=== PATIENT | female | born 2000 | race African-American/Black ===

== ENCOUNTER 2020-03-20 13:51 | Emergency (ER) | payer SELFPAY ==
[2020-03-20 14:09] VITALS: BP 121/95; PULSE 98; RESP 16; TEMP 36.3; O2SAT 100
[2020-03-20 14:39] LABS: Basophils Percent Auto 0.4 % (0.2-1.2); Eosinophils Absolute Auto 0.4 K/mm3 (0-0.3); Eosinophils Percent Auto 6.1 % (0-4.4); Hematocrit 38.6 % (37.0-47.0); Hemoglobin 12.2 g/dL (12.0-15.0); Immature Granulocyte Absolute 0.01 K/mm3 (0.00-0.031); Immature Granulocyte Percent A 0.1 % (0-0.5); Lymphocytes Absolute Auto 2.35 K/mm3 (0.9-3.2); Lymphocytes Percent Auto 34.8 % (18.3-44.2); Mean Corpuscular HGB Conc 31.6 g/dl (32-36); Mean Corpuscular Hemoglobin 25.5 pg (26-34); Mean Corpuscular Volume 80.8 fl (80-100); Mean Platelet Volume 9.8 fl (7.4-10.4); Monocytes Absolute Auto 0.7 K/mm3 (0.1-0.6); Monocytes Percent Auto 9.8 % (2.6-8.5); Neutrophils Absolute Auto 3.3 K/mm3 (1.3-6.7); Neutrophils Percent Auto 48.8 % (45.5-73.1); Platelet Count Result 356 k/mm3 (150-375); Red Blood Count 4.78 M/mm3 (4.2-5.4); Red Cell Distribution Width 13.9 % (11.5-14.5); White Blood Count 6.8 K/mm3 (4.5-10.0)
[2020-03-20 15:01] LABS: Alanine Aminotransferase 10 U/L (4-35); Albumin Level 3.9 g/dL (3.5-5.1); Alkaline Phosphatase 74 U/L (38-126); Anion Gap 6 mmol/L (8-16); Aspartate Amino Transferase 19 U/L (14-36); Bilirubin,Total 0.3 mg/dL (0.2-1.3); Blood Urea Nitrogen 10 mg/dL (7-17); Calcium 8.9 mg/dL (8.4-10.2); Carbon Dioxide 30 mmol/L (22-30); Chloride 103 mmol/L (98-107); Estimated CRCL calculation 138 ml/min; Estimated Glomerular Filt Rate > 60; Glucose 91 mg/dL (65-105); Potassium 3.7 mmol/L (3.4-5.0); Sodium 139 mmol/L (137-145)
[2020-03-20 15:39] LABS: HIV 1/2 Ab P24 Ag Result Negative (Negative)
--- NOTE | 2020-03-20 15:52 | ED.GENADULT ---
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 She states her daughter made her come to the ER to be evaluated. The patient is being tested for HIV but is known to be positive for hepatitis C and negative for hepatitis B. Patient states that she was vaccinated against hepatitis B. Patient states that her eyes were irrigated on the scene. She denies having a history of hepatitis or HIV herself. Patient denies any chronic medical conditions or daily medications. <MARCOS De La Vega Last Filed: 03/20/20 15:54> Related Data Home medications: Home Medications Medication Instructions Recorded Confirmed No Home Medications 03/20/20 03/20/20 <MARCOS De La Vega Last Filed: 03/20/20 15:54> Allergies/adverse reactions: Allergies Allergy/AdvReac Type Severity Reaction Status Date / Time No Known Allergies Allergy Verified 03/20/20 14:18 <MARCOS De La Vega Last Filed: 03/20/20 15:54> Review of Systems Review of Systems: Narrative: CONSTITUTIONAL: Denies fever, chills, or sweats. EYES: Reports blurred bladder to eye denies visual changes, redness, or discharge. ENT: Denies rhinorrhea, congestion, sore throat, or otalgia. CARDIOVASCULAR: Denies chest pain, palpitations, or edema. RESPIRATORY: Denies cough or dyspnea. GASTROINTESTINAL: Denies abdominal pain, nausea, vomiting, or diarrhea. GENITOURINARY: Denies dysuria or hematuria. SKIN: Denies rash or itching. MUSCULOSKELETAL: Denies back pain, joint pain, or myalgia. NEUROLOGIC: Denies headache, numbness, dizziness, or weakness. PSYCHIATRIC: Denies anxiety or depression. <Mary Queen PA-C - Last Filed: 03/20/20 15:54> [facility] Social History Social History: Social History Gender identity (if verbalized by the patient): Female <MARCOS De La Vega Last Filed: 03/20/20 15:54> Exam Narrative: Exam Narrative: GENERAL: Well-appearing, well-nourished, and in no acute distress. HEAD: Normocephalic, atraumatic. EYES: PERRLA and EOMI. CHEST: Clear to auscultation. No respiratory distress. No wheezes rales or rhonchi HEART: Regular rate and rhythm. No murmur heard. Normal peripheral pulses. EXTREMITIES: Normal range of motion. No edema. SKIN: Warm, dry, no rash. NEURO: No focal deficits. Alert and oriented x3. PSYCH: Normal mood and affect. <MARCOS De La Vega Last Filed: 03/20/20 15:54> Course Vital Signs Vital signs: Vital Signs Temperature 97.4 F L 03/20/20 14:09 Pulse Rate 98 03/20/20 14:09 Respiratory Rate 16 03/20/20 14:09 Blood Pressure 121/95 H 03/20/20 14:09 Pulse Oximetry 100 03/20/20 14:09 Temperature 97.4 F L 03/20/20 14:09 Pulse Rate 98 03/20/20 14:09 Respiratory Rate 16 03/20/20 14:09 Blood Pressure 121/95 H 03/20/20 14:09 Pulse Oximetry 100 03/20/20 14:09 <MARCOS De La Vega Last Filed: 03/20/20 15:54> Vital Signs Temperature 97.4 F L 03/20/20 14:09 Pulse Rate 98 03/20/20 14:09 Respiratory Rate 16 03/20/20 14:09 Blood Pressure 121/95 H 03/20/20 14:09 Pulse Oximetry 100 03/20/20 14:09 Temperature 97.4 F L 03/20/20 14:09 Pulse Rate 98 03/20/20 14:09 Respiratory Rate 16 03/20/20 14:09 Blood Pressure 121/95 H 03/20/20 14:09 Pulse Oximet
[2020-03-20 16:19] LABS: Hepatitis B Surface Antigen Negative (Negative)
[2020-03-20 16:25] LABS: HAV RESULT Negative (Negative); Hepatitis B Core IgM Result Negative (Negative)
[2020-03-20 16:36] LABS: Hepatitis C Virus Antibody Negative (Negative)
== END 2020-03-20 15:49 | disposition home or self-care (01) ==
LOC: ANHED 14:34
PROVIDERS: Physician Assistant; Emergency Provider General Practice
DX: Z77.21 Contact with and (suspected) exposure to potentially hazardous body fluids (principal)
CPT/HCPCS: 36415; 80053; 80074; 85025; 86703; 99283; G0432

== ENCOUNTER 2020-04-09 12:32 | Emergency (ER) | payer OTHER, SELFPAY ==
--- NOTE | ~2020-04-09 | XR_ITS ---
EXAMINATION: XR chest 1V portable DATE: 04/09/2020 14:45 INDICATION: Cough. TECHNIQUE: A single frontal view of the chest was obtained. COMPARISON: None. FINDINGS: The chest demonstrates clear lungs without pneumonia, pleural effusion, or pneumothorax. Th e heart size is normal. IMPRESSION: 1. No acute cardiopulmonary disease. Reviewed, dictated and finalized at location [facility] [employer] [facility]
[2020-04-09 12:38] VITALS: BP 139/96; PULSE 95; RESP 18; TEMP 36.2; O2SAT 100
--- NOTE | 2020-04-09 14:13 | ED.GENADULT ---
HPI - General Adult General Chief complaint: Headache Stated complaint: headache/ passing out Time Seen by Provider: 04/09/20 13:46 Source: patient Mode of arrival: ambulatory Limitations: no limitations History of Present Illness HPI narrative: Patient is a 19-year-old female who presents to emergency department for evaluation of syncope today patient notes she did not completely pass out but was near syncopal while at work patient on arrival notes left-sided headache notes over the last week she has had congestion rhinorrhea chills fatigue cough that is nonproductive and notes that she can no longer smell or taste during this period. Patient does not have a primary care doctor has not been seen for this. Patient denies chest pain shortness of breath vomiting diarrhea vaginal bleeding. On arrival patient does not appear uncomfortable or in any distress. Patient is not taken anything for her symptoms Related Data Allergies Allergy/AdvReac Type Severity Reaction Status Date / Time No Known Allergies Allergy Verified 03/20/20 14:18 Review of Systems Review of Systems: All systems reviewed & are unremarkable except as noted in HPI and below PMFSH Social History Social History (Updated 04/09/20 @ 14:15 by Rell Naranjo PA-C) Smoking status: Never smoker Gender identity (if verbalized by the patient): Female Exam Narrative: Exam Narrative: GENERAL: Well-appearing, well-nourished, and in no acute distress. HEAD: Normocephalic, atraumatic. EYES: PERRLA and EOMI. ENT: Nares clear, no rhinorrhea or epistaxis. Mucous membranes moist. CHEST: Clear to auscultation. No respiratory distress. No wheezes rales or rhonchi HEART: Regular rate and rhythm. No murmur heard. Normal peripheral pulses. ABDOMEN: Soft, nontender, nondistended EXTREMITIES: Normal range of motion. No edema. SKIN: Warm, dry, no rash. NEURO: No focal deficits. Alert and oriented x3. Cranial nerves II through XII grossly intact. Normal speech PSYCH: Normal mood and affect. Course Course Emergency Course: Patient evaluated in the emergency department no distress will be discharged home with follow-up with primary care for further testing and evaluation will be tested for COVID-19 patient is afebrile nontoxic-appearing no distress felt appropriate for outpatient reevaluation is noted patient medicated in the emergency department Vital Signs Vital signs: Vital Signs Temperature 97.2 F L 01/25/21 12:38 Pulse Rate 95 04/09/20 12:38 Respiratory Rate 18 04/09/20 12:38 Blood Pressure 139/96 H 04/09/20 12:38 Pulse Oximetry 100 04/09/20 12:38 Temperature 97.2 F L 04/09/20 12:38 Pulse Rate 96 04/09/20 14:24 Respiratory Rate 18 04/09/20 12:38 Blood Pressure 137/81 04/09/20 14:24 Pulse Oximetry 100 04/09/20 12:38 Medical Decision Making MDM Narrative Medical decision making narrative: Patient with upper respiratory symptoms will be discharged home with follow-up with primary care patient was made aware that primary care is the only 1 that can obtain her COVID-19 results. Patient provided with reasons to return patient is afebrile nontoxic-appearing no distress. No pneumonia seen on exam Vital Signs Vital Signs: Vital Signs Temperature 97.2 F L 04/09/20 12:38 Pulse Rate 95 04/09/20 12:38 Respiratory Rate 18 04/09/20 12:38 Blood Pressure 139/96 H 04/09/20 12:38 Pulse Oximetry 100 04/09/20 12:38 Temperature 97.2 F L 04/09/20 12:38 Pulse Rate 96 04/09/20 14:24 Respiratory Rate 18 04/09/20 12:38 Blood Pressure 137/81 04/09/20 14:24 Pulse Oximetry 100 04/09/20 12:38 Lab Data Result diagrams: 04/09/20 14:19 04/09/20 14:20 Labs: Lab Results 04/09/20 04/09/20 04/09/20 Range/Units 14:19 14:20 14:20 WBC 3.5 L (4.5-10.0) K/mm3 RBC 5.00 (4.2-5.4) M/mm3 Hgb 13.0 (12.0-15.0) g/dL Hct 40.5 (37.0-47.0) % MCV 81.0 (80-100) fl MCH 26.
[2020-04-09 14:22] VITALS: BP 139/81; PULSE 102
[2020-04-09 14:24] VITALS: BP 137/81; PULSE 96
[2020-04-09 14:46] LABS: Basophils Percent Auto 0.3 % (0.2-1.2); Eosinophils Absolute Auto 0.2 K/mm3 (0-0.3); Eosinophils Percent Auto 4.3 % (0-4.4); Hematocrit 40.5 % (37.0-47.0); Lymphocytes Absolute Auto 1.55 K/mm3 (0.9-3.2); Lymphocytes Percent Auto 44.7 % (18.3-44.2); Mean Corpuscular HGB Conc 32.1 g/dl (32-36); Mean Platelet Volume 10.3 fl (7.4-10.4); Monocytes Absolute Auto 0.6 K/mm3 (0.1-0.6); Monocytes Percent Auto 15.9 % (2.6-8.5); Neutrophils Absolute Auto 1.2 K/mm3 (1.3-6.7); Neutrophils Percent Auto 34.8 % (45.5-73.1); Platelet Count Result 287 k/mm3 (150-375); Red Cell Distribution Width 13.9 % (11.5-14.5); White Blood Count 3.5 K/mm3 (4.5-10.0)
[2020-04-09 14:52] LABS: Add Urine Microscopic? YES; Appearance Urine Clear (Clear); Bilirubin Urine Negative (Negative); Blood Urine 2+ (Negative); Color Urine Yellow (Yellow); Glucose Urine UA Negative (Negative); Ketones Urine Negative (Negative); Leukocyte Esterase Ur Negative LEU/UL (Negative); Mucus Urine Heavy /lpf; Nitrate Urine Negative (Negative); Protein Urine 2+ mg/dL (Negative); RBC Urine 51-75 /hpf (0-2); Squamous Epithelial Cell Urine Many /hpf (Few); WBC Urine 0-3 /hpf
[2020-04-09] MEDS: SODIUM CHLORIDE 0.9% IV 1,000 ML 999 ML IV CONT (14:52)
[2020-04-09 14:53] LABS: Specific Grav Ur 1.036 (1.001-1.035)
[2020-04-09 14:58] LABS: Alanine Aminotransferase 11 U/L (4-35); Albumin Level 4.1 g/dL (3.5-5.1); Alkaline Phosphatase 66 U/L (38-126); Anion Gap 7 mmol/L (8-16); Aspartate Amino Transferase 21 U/L (14-36); Bilirubin,Total 0.3 mg/dL (0.2-1.3); Blood Urea Nitrogen 9 mg/dL (7-17); Calcium 8.7 mg/dL (8.4-10.2); Carbon Dioxide 33 mmol/L (22-30); Chloride 100 mmol/L (98-107); Estimated CRCL calculation 147 ml/min; Estimated Glomerular Filt Rate > 60; Glucose 78 mg/dL (65-105); Potassium 3.8 mmol/L (3.4-5.0); Sodium 140 mmol/L (137-145)
[2020-04-09 15:03] LABS: Amphetamine Screen Urine Negative (Negative); Barbiturate Screen Urine Negative (Negative); Benzodiazepines Screen Urine Negative (Negative); Cannabinoid Screen Urine Negative (Negative); Cocaine Screen Urine Negative (Negative); Methadone Screen Urine Negative (Negative); Opiate Screen Urine Negative (Negative); Phencyclidine Screen Urine Negative (Negative)
[2020-04-09 16:11] VITALS: BP 137/86; PULSE 99; RESP 16; O2SAT 99
[2020-04-09 22:05] LABS: SARS-CoV-2 RNA PCR Positive
== END 2020-04-09 16:11 | disposition home or self-care (01) ==
PROVIDERS: Emergency Medicine Emergency Medical Services; Emergency Provider Emergency Medicine; Referring Provider Family Medicine
DX: U07.1 COVID-19 (principal); J06.9 Acute upper respiratory infection, unspecified; R55 Syncope and collapse
CPT/HCPCS: 36415; 71045; 80053; 80307; 81001; 81025; 85025; 96361; 96365; 99284; C9803; J0131; J7030; U0003; U0005

== ENCOUNTER 2020-04-19 16:11 | Emergency (ER) | payer OTHER, SELFPAY ==
[2020-04-19 16:37] VITALS: BP 139/97; PULSE 94; RESP 17; TEMP 36.2; O2SAT 100
[2020-04-19] MEDS: PROCHLORPERAZINE EDISYLATE 10 MG/2 ML VIAL 5 MG IV PUSH (19:46)
[2020-04-19] MEDS: LACTATED RINGERS 1,000 ML 999 ML IV CONT (19:46)
[2020-04-19] MEDS: diphenhydrAMINE HCl INJ 50 MG/ML VIAL 25 MG IV PUSH (19:46)
--- NOTE | 2020-04-19 20:00 | ED.HA ---
HPI - Headache General Chief Complaint: Headache Stated Complaint: COVID, Headache Time Seen by Provider: 04/19/20 19:01 Source: patient Mode of arrival: ambulatory Limitations: no limitations History of Present Illness HPI Narrative: [facility] 19[facility]. Patient was recently diagnosed with Covid. She states that her headache has been persistent. She has been taking medications at home with little to no relief. Patient states that this has been very bothersome. She denies any other symptoms such as chest pain, shortness of breath or cough. Related Data Allergies Allergy/AdvReac Type Severity Reaction Status Date / Time No Known Allergies Allergy Verified 03/20/20 14:18 Review of Systems Review of Systems: Narrative: CONSTITUTIONAL: Denies fever, chills, or sweats. EYES: Denies visual changes, redness, or discharge. ENT: Denies rhinorrhea, congestion, sore throat, or otalgia. CARDIOVASCULAR: Denies chest pain, palpitations, or edema. RESPIRATORY: Denies cough or dyspnea. GASTROINTESTINAL: Denies abdominal pain, nausea, vomiting, or diarrhea. GENITOURINARY: Denies dysuria or hematuria. SKIN: Denies rash or itching. MUSCULOSKELETAL: Denies back pain, joint pain, or myalgia. NEUROLOGIC: Denies numbness, dizziness, or weakness. Endorses headache PSYCHIATRIC: Denies anxiety or depression. [facility] Social History Social History Smoking status: Never smoker Gender identity (if verbalized by the patient): Female Exam Narrative: Exam Narrative: GENERAL: Well-appearing, well-nourished, and in no acute distress. HEAD: Normocephalic, atraumatic. EYES: PERRLA and EOMI. ENT: Nares clear, no rhinorrhea or epistaxis. Mucous membranes moist. NECK: Supple. No adenopathy or masses. No carotid bruits or JVD CHEST: Clear to auscultation. No respiratory distress. No wheezes rales or rhonchi HEART: Regular rate and rhythm. No murmur heard. Normal peripheral pulses. ABDOMEN: Soft, nontender, nondistended, normal active bowel sounds. EXTREMITIES: Normal range of motion. No edema. SKIN: Warm, dry, no rash. NEURO: No focal deficits. Alert and oriented x3. PSYCH: Normal mood and affect. Course Reevaluation(s) Reevaluation #1: Patient was receiving the medications. She was given the Compazine, and Benadryl. Patient started having an abnormal reaction to the Compazine had a little bit of anxiety associated with this wanted her IV immediately removed and stated she wanted to be discharged. I did present to the patient's room informed her that she did not yet receive the Toradol and this would likely do the majority of her pain relief for the headache. Patient states that she was ready to go. Time: 20:06 Vital Signs Vital signs: Vital Signs Temperature 36.2 C L 04/19/20 16:37 Pulse Rate 94 04/19/20 16:37 Respiratory Rate 17 04/19/20 16:37 Blood Pressure 139/97 H 04/19/20 16:37 Pulse Oximetry 100 04/19/20 16:37 Temperature 36.2 C L 04/19/20 16:37 Pulse Rate 94 04/19/20 16:37 Respiratory Rate 17 04/19/20 16:37 Blood Pressure 139/97 H 04/19/20 16:37 Pulse Oximetry 100 04/19/20 16:37 MDM - Headache MDM Narrative Medical decision making narrative: In brief this is a Covid positive 19-year-old female came in here for treatment of a headache. Patient was just given the first couple of medications and had an abnormal reaction to the Compazine along to leave. Patient will be discharged immediately. Discharge Plan Discharge Clinical Impression: COVID-19 Headache Qualifiers: Headache type: unspecified Headache chronicity pattern: acute headache Patient Disposition: Home, Self-Care Condition: Improved Instructions: Acute Headache (ED) Prescriptions: No Action loratadine [Claritin] 10 mg tablet 10 mg PO DAILY PRN (Reason: allergy symptoms) Qty: 10 RF: 0
--- NOTE | 2020-04-19 20:01 | PC.NURSE ---
pt requested to have IV removed, said it was making her have anxiety attack. MD notified, pt then stated dhe was feeling sleepy, RN had discussed with pt that meds would make her tired feeling.
[2020-04-19 20:12] VITALS: BP 143/86; PULSE 89; RESP 18; TEMP 36.7; O2SAT 99
== END 2020-04-19 20:13 | disposition home or self-care (01) ==
PROVIDERS: Emergency Provider Emergency Medicine
DX: U07.1 COVID-19 (principal); R51.9 Headache, unspecified
CPT/HCPCS: 96374; 96375; 99284; J0780; J1200; J7120